=== PATIENT | female | born 1970 | race Caucasian/White ===

== ENCOUNTER 2025-04-20 05:00 | Emergency (ER) | payer OTHER ==
[~2025-04-20] VITALS: Ht 157.5 cm; Wt 95.7 kg
[2025-04-20] MEDS ORDERED: DOXY-442 PO (06:58)
[2025-04-20 07:09] VITALS: BP 132/62; TEMP 96.9; O2SAT 99
== END 2025-04-20 07:12 | disposition home or self-care (01) ==
LOC: M ED 05:00
DX: L03.115 Cellulitis of right lower limb (principal); M79.7 Fibromyalgia; J45.909 Unspecified asthma, uncomplicated; Z88.0 Allergy status to penicillin; Z88.6 Allergy status to analgesic agent; Z79.2 Long term (current) use of antibiotics